=== PATIENT | female | born 1945 | race Asian ===

== ENCOUNTER 2017-04-26 18:30 | Inpatient (IN) | payer MEDICARE, OTHER ==
[~2017-04-26] VITALS: Ht 154.9 cm; Wt 49.0 kg
[2017-04-26] MEDS ORDERED: IBUP-1954 PO (18:40)
[2017-04-26] MEDS ORDERED: FLUT16SP2 NS (18:40)
[2017-04-26] MEDS ORDERED: FERR325C PO (18:40)
--- NOTE | 2017-04-26 20:00 | NUR ---
LUIS DANIEL THOMAS NOTIFIED OF ADMISSION AND THE NEED FOR MED RECONCILIATION.
--- NOTE | 2017-04-26 20:42 | NUR ---
Pt. admitted to [facility], under care of Dr. Cason Belongs List completed
[2017-04-26] MEDS ORDERED: MAGNESIUM HYDROXIDE 30 ML LIQUID UDC PO PRN (20:45)
[2017-04-26] MEDS ORDERED: MAG HYDROX/AL HYDROX/SIMETH 30 ML LIQUID UDC PO PRN (20:45)
[2017-04-26] MEDS ORDERED: LORAZEPAM 0.5 MG TABLET PO PRN (20:45)
[2017-04-26] MEDS ORDERED: ACETAMINOPHEN 325 MG TABLET PO PRN (20:45)
[2017-04-26] MEDS ORDERED: TEMAZEPAM 7.5 MG CAPSULE PO PRN (20:45)
[2017-04-26 21:00] VITALS: BP 128/67
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
[2017-04-27 07:30] VITALS: BP 119/75
[2017-04-27 15:20] VITALS: BP 101/59
[2017-04-27 20:53] VITALS: BP 117/68
[2017-04-27] MEDS ORDERED: OLANZAPINE ZYDIS 5 MG TAB.RAPDIS PO SCH (21:00)
--- NOTE | 2017-04-27 22:45 | NUR ---
Pt UNCOOPERATIVE, REFUSED SKIN ASSESSMENT.
[2017-04-28 07:30] VITALS: BP 114/50
[2017-04-28 08:04] LABS: THYROID STIMULATING HORMONE 4.583 mIU/mL (0.358-3.740)
[2017-04-28 08:05] LABS: BASOPHILS # (AUTO) 0.1 K/uL (0.0-8.0); BASOPHILS % (AUTO) 1.1 % (0.0-2.0); EOSINOPHILS # (AUTO) 0.2 K/uL (0.0-0.7); EOSINOPHILS % (AUTO) 3.3 % (0.0-7.0); HEMATOCRIT 37.6 % (31.2-41.9); HEMOGLOBIN 12.1 g/dL (10.9-14.3); LYMPHOCYTES # (AUTO) 1.3 K/uL (20.0-40.0); LYMPHOCYTES % (AUTO) 23.6 % (20.5-51.5); MEAN CORPUSCULAR HEMOGLOBIN 22.2 uug (24.7-32.8); MEAN CORPUSCULAR HGB CONC 32 g/dL (32.3-35.6); MONOCYTES # (AUTO) 0.4 K/uL (2.0-10.0); MONOCYTES % (AUTO) 6.2 % (0.0-11.0); NEUTROPHILS # (AUTO) 3.7 K/uL (1.8-8.9); NEUTROPHILS % (AUTO) 65.8 % (38.5-71.5); PLATELET COUNT (AUTO) 256 K/uL (179-408); RED BLOOD CELL COUNT(AUTO) 5.45 MIL/uL (3.63-4.92); WHITE BLOOD COUNT (AUTO) 5.6 K/uL (3.8-11.8)
[2017-04-28 08:36] LABS: ALANINE AMINOTRANSFERASE 11 U/L (14-59); ALKALINE PHOSPHATASE 70 U/L (50-136); ASPARTATE AMINOTRANSFERASE 17 U/L (15-37); BILIRUBIN,TOTAL 0.3 mg/dL (0.2-1.0); CARBON DIOXIDE 30 mmol/L (21-32); CHLORIDE 107 mmol/L (98-107); CREATININE 0.6 mg/dL (0.6-1.3); GLUCOSE 101 mg/dL (74-106); MAGNESIUM 2.1 mg/dL (1.8-2.4); PHOSPHOROUS 3.8 mg/dL (2.5-4.9); POTASSIUM 4.4 mmol/L (3.5-5.1); TOTAL PROTEIN, SERUM 7.6 g/dL (6.4-8.2); UREA NITROGEN, BLOOD 18 mg/dL (7-18)
[2017-04-28 09:14] LABS: BAND % (MANUAL) 4 % (0-10); EOSINOPHILS % (MANUAL) 4 % (0-8); LYMPHOCYTES % (MANUAL) 27 % (20-40); MONOCYTES % (MANUAL) 6 % (2-10); NEUTROPHILS % (MANUAL) 59 % (42-75)
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
[2017-04-28 15:30] VITALS: BP 106/67
--- NOTE | 2017-04-28 17:50 | NUR ---
Gps/Online Marketer- Per patient, she will not take anymore psych.meds. gina, claimed last night when she took med. she felt heaviness on her head, Dr Vicente was informed. Patient claimed she is not crazy, and does not belong here. Ambulates around with front wheel walker , stayed in the activity room during the day.
[2017-04-28 20:34] VITALS: BP 157/78
[2017-04-28] MEDS: ATORVASTATIN 20 MG TABLET PO SCH (21:00)
[2017-04-28] MEDS: OLANZAPINE ZYDIS 5 MG TAB.RAPDIS PO SCH (21:01)
[2017-04-29 09:47] VITALS: BP 122/62
--- NOTE | 2017-04-29 10:30 | NUR ---
Firearms Report: Magento Developer completed and submitted [facility] Firearms Report on 04/29/17.
--- NOTE | 2017-04-29 14:16 | NUR ---
Initial Discharge Instructions: Pt resides at home alone [[address], [address] [place] [address]; [phone]]. Per pt, she would like to return home upon discharge. Pt is not consenting to contact her friend, Stephen Lafleur [phone] at this time. SW will speak with pt and MD regarding appropriate discharge plans. SW will form a safe and proper discharge for this patient.
[2017-04-29 15:20] VITALS: BP 128/59
--- NOTE | 2017-04-29 16:52 | NUR ---
Pt currently quite irate, agitated, and irritable over Psychiatrist placing her on a 14 day hold. Pt quite verbal on disagreement of hold, hyperverbal and grandiose. States "trust me, I know a lot about healthcare and everything about the law." Refusing to use a walker at this time. States that if she falls, it's because of the medications. Remains quite paranoid and delusional at this time. Will continue to monitor.
[2017-04-29] MEDS: OLANZAPINE ZYDIS 5 MG TAB.RAPDIS PO SCH (20:38)
[2017-04-29] MEDS: ATORVASTATIN 20 MG TABLET PO SCH (20:38)
[2017-04-29 20:41] VITALS: BP 114/55
--- NOTE | 2017-04-29 20:52 | NUR ---
PATIENT RECEIVED IN ACTIVITIES ROOM INTERACTING WITH PEERS AND STAFF. PATIENT CALM, COOPERATIVE AND COMPLAINT WITH MEDICATION. PATIENT IS EASILY AGITATED, EASILY IRRITABLE, AND ARGUMENTATIVE. PATIENT STATES " I DON'T BELONG HERE." NO AGGRESSIVE OR COMBATIVE BEHAVIOR NOTED WILL CONTINUE TO MONITOR.
[2017-04-30 07:30] VITALS: BP 138/72
[2017-04-30 16:48] VITALS: BP 125/62
[2017-04-30 20:00] VITALS: BP 127/83
[2017-04-30] MEDS: ATORVASTATIN 20 MG TABLET PO SCH (20:48)
[2017-04-30] MEDS: OLANZAPINE ZYDIS 5 MG TAB.RAPDIS PO SCH (20:48)
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
[2017-05-01 08:00] VITALS: BP 116/56
[2017-05-01 08:36] LABS: BASOPHILS # (AUTO) 0.1 K/uL (0.0-8.0); BASOPHILS % (AUTO) 1.3 % (0.0-2.0); EOSINOPHILS # (AUTO) 0.1 K/uL (0.0-0.7); HEMATOCRIT 39.2 % (31.2-41.9); HEMOGLOBIN 12.5 g/dL (10.9-14.3); LYMPHOCYTES # (AUTO) 1.5 K/uL (20.0-40.0); LYMPHOCYTES % (AUTO) 24.9 % (20.5-51.5); MEAN CORPUSCULAR HEMOGLOBIN 21.9 uug (24.7-32.8); MEAN CORPUSCULAR HGB CONC 32 g/dL (32.3-35.6); MEAN CORPUSCULAR VOLUME 68.9 fL (75.5-95.3); MONOCYTES # (AUTO) 0.4 K/uL (2.0-10.0); MONOCYTES % (AUTO) 6.3 % (0.0-11.0); NEUTROPHILS # (AUTO) 3.9 K/uL (1.8-8.9); NEUTROPHILS % (AUTO) 65.5 % (38.5-71.5); PLATELET COUNT (AUTO) 280 K/uL (179-408); RED BLOOD CELL COUNT(AUTO) 5.68 MIL/uL (3.63-4.92)
[2017-05-01] MEDS ORDERED: FLUTICASONE PROP NASAL SPRAY 16 GM BOTTLE NS SCH (09:00)
[2017-05-01 09:04] LABS: THYROID STIMULATING HORMONE 4.185 mIU/mL (0.358-3.740)
[2017-05-01 09:07] LABS: ALANINE AMINOTRANSFERASE 15 U/L (14-59); ALKALINE PHOSPHATASE 87 U/L (50-136); ASPARTATE AMINOTRANSFERASE 22 U/L (15-37); BILIRUBIN,TOTAL 0.4 mg/dL (0.2-1.0); CARBON DIOXIDE 31 mmol/L (21-32); CHLORIDE 101 mmol/L (98-107); CREATININE 0.6 mg/dL (0.6-1.3); GLUCOSE 92 mg/dL (74-106); MAGNESIUM 2.3 mg/dL (1.8-2.4); PHOSPHOROUS 3.9 mg/dL (2.5-4.9); POTASSIUM 3.1 mmol/L (3.5-5.1); TOTAL PROTEIN, SERUM 8.7 g/dL (6.4-8.2); UREA NITROGEN, BLOOD 18 mg/dL (7-18)
[2017-05-01 10:34] LABS: BAND % (MANUAL) 6 % (0-10); EOSINOPHILS % (MANUAL) 1 % (0-8); LYMPHOCYTES % (MANUAL) 31 % (20-40); MONOCYTES % (MANUAL) 5 % (2-10); NEUTROPHILS % (MANUAL) 57 % (42-75)
[2017-05-01] MEDS ORDERED: POTASSIUM CHLORIDE 20 MEQ TAB.PRT.SR PO ONE (11:30)
--- NOTE | 2017-05-01 13:47 | NUR ---
DC Note: Patient was released by the [facility] on 05/01/17. Patient came in on a 5150 for grave disability. Per [facility] guidelines, patient's family is to be contacted for assistance with patients care; however, patient does not have any family to be contacted. Patient will not accept placement. Patient will be discharged home [[address], [address] [place] [address]; [phone]] via taxi. Patient is aware and agreeable with plans for discharge. Patient will follow-up with her PCP Dr. Jaison Mendoza [[facility] [address] [place] [address]; ]. Patient was given a list of Medicare Psychiatrists in [place], [place]. Patient verbalized understanding for making a follow-up appointment with a provider given. The list included: Christine Arevalo MD [[address] [place] [address]; [phone]]; Mike Watson M.D. [[address], [address], [place] [address]; [phone]]; Dr. Praful Sanchez MD [[address] [place] [address]; [phone]]; Dr. Ginna López M.D. [[address] [place] [address]; [phone]]; Luis De La Vega D.O. [[address] [place] [address]; [phone]]; Say Aragon MD [[address] [facility] [place] [address]; [phone]]; Dr. Kaya Jackson M.D. [[address], [place] [address]; [phone]]. The patient was also given Mental Health referrals for the [facility] ( ) and the National Suicide Prevention Lifeline ( ).
--- NOTE | 2017-05-01 15:16 | NUR ---
1500 discharged instruction given to the patient regarding medications to continue upon hospital discharged.- patient verbalized understanding. Prescriptions both medical and psychiatry given to the patient. All valuables and belongings returned and signed. patient alert and ox 4, denies SI/HI. no delusion/ no hallucination noted.[id number] Patient discharged home via taxi with hospital voucher.
[2017-05-04 14:10] LABS: *VITAMIN D 25-OH VIT D 35 ng/mL (.); *VITAMIN D 25-OH, D2 <1.0 ng/mL (.); *VITAMIN D 25-OH, D3 35 ng/mL (.)
== END 2017-05-01 15:15 | disposition home or self-care (01) | DRG 885 ==
LOC: ER 18:31 → GPS 20:33
PROVIDERS: ADMIT Psychiatry & Neurology Psychiatry; ATTEND Internal Medicine
DX: F23 Brief psychotic disorder (principal); F22 Delusional disorders; D64.9 Anemia, unspecified; E78.5 Hyperlipidemia, unspecified; M25.512 Pain in left shoulder; M25.511 Pain in right shoulder; E87.6 Hypokalemia; K58.9 Irritable bowel syndrome, unspecified; M81.0 Age-related osteoporosis without current pathological fracture
CPT/HCPCS: 36415; 83735; 84100; 84443; 85025; A4663; J3535